=== PATIENT | female | born 2000 | race African-American/Black ===

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

== ENCOUNTER 2023-10-20 13:26 | Emergency (ER) | payer MEDICAID ==
[~2023-10-20] VITALS: Ht 154.9 cm; Wt 90.0 kg
[2023-10-20 13:32] VITALS: TEMP 98.4; O2SAT 99
[2023-10-20] MEDS ORDERED: BACITRACIN ZINC OINT UDPKT TOP ONE (14:30)
[2023-10-20] MEDS ORDERED: HYDROCODONE/ACETAMINOPHEN 5/325MG TABLET PO ONE (14:30)
[2023-10-20] MEDS ORDERED: LIDOCAINE HCL/PF 1% 10 MG/ML 5ML VIAL INFIL ONE (14:30)
[2023-10-20] MEDS: BACITRACIN ZINC OINT UDPKT TOP NR (16:23)
[2023-10-20] MEDS: HYDROCODONE/ACETAMINOPHEN 5/325MG TABLET PO NR (16:23)
[2023-10-20] MEDS: LIDOCAINE HCL/PF 1% 10 MG/ML 5ML VIAL INFIL ONE (16:24)
[2023-10-20] MEDS: LIDOCAINE HCL/PF 1% 10 MG/ML 5ML VIAL INFIL NR (16:24)
[2023-10-20] MEDS ORDERED: IBUP-2029 MT (17:53)
[2023-10-20] MEDS ORDERED: BO1 TP (17:53)
[2023-10-20 18:39] VITALS: BP 100/63; PULSE 65; RESP 18; O2SAT 99
== END 2023-10-20 18:40 | disposition home or self-care (01) ==
LOC: ER 13:35
DX: S51.811A Laceration without foreign body of right forearm, initial encounter (principal); W26.0XXA Contact with knife, initial encounter; Y93.89 Activity, other specified; Y92.89 Other specified places as the place of occurrence of the external cause; Y99.8 Other external cause status
CPT/HCPCS: 12006; 99283; J3490; Z7610